=== PATIENT | male | born 1965 | race African-American/Black ===

== ENCOUNTER 2023-02-21 03:42 | Emergency (ER) | payer OTHER ==
[~2023-02-21] VITALS: Ht 172.7 cm; Wt 72.7 kg
[~2023-02-21 03:42] MED LIST: OTC PAIN RELIEVER
[2023-02-21] MEDS ORDERED: NITROGLYCERIN 2% OINT 1 GM UNIT DOSE PACKET TOP STA (03:54)
[2023-02-21] MEDS ORDERED: ASPIRIN 81 MG CHEWABLE TABLET PO ONE (04:00)
[2023-02-21 04:01] LABS: BASOPHILS % (AUTO) 1 % (0-10); EOSINOPHILS # (AUTO) 0.4 10^3/uL (0.0-0.3); EOSINOPHILS % (AUTO) 7 % (0-10); HEMATOCRIT 40 % (40-54); HEMOGLOBIN 13.3 g/dL (13.3-17.7); LYMPHOCYTES # (AUTO) 2.8 10^3/uL (1.0-4.0); LYMPHOCYTES % (AUTO) 46 % (12-44); MEAN CORPUSCULAR HEMOGLOBIN 30 pg (25-34); MEAN CORPUSCULAR HGB CONC 33 g/dL (32-36); MEAN CORPUSCULAR VOLUME 91 fL (80-99); MEAN PLATELET VOLUME 10.4 fL (9.0-12.2); MONOCYTES # (AUTO) 0.7 10^3/uL (0.0-1.0); MONOCYTES % (AUTO) 11 % (0-12); NEUTROPHILS # (AUTO) 2.1 10^3/uL (1.8-7.8); NEUTROPHILS % (AUTO) 34 % (42-75); PLATELET COUNT 352 10^3/uL (130-400); WHITE BLOOD COUNT 6.1 10^3/uL (4.3-11.0)
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
[2023-02-21 04:17] LABS: ALBUMIN 4.2 GM/DL (3.2-4.5); CHLORIDE 107 MMOL/L (98-107); SODIUM 139 MMOL/L (135-145)
[2023-02-21 04:18] LABS: AMYLASE 81 U/L (25-125); CALCIUM 9.4 MG/DL (8.5-10.1)
[2023-02-21 04:19] LABS: GLUCOSE 100 MG/DL (70-105); INR 0.9 (0.8-1.4); PROTHROMBIN TIME PATIENT 12.9 SEC (12.2-14.7); TOTAL PROTEIN 8.1 GM/DL (6.4-8.2)
[2023-02-21 04:20] LABS: CARBON DIOXIDE 23 MMOL/L (21-32)
[2023-02-21 04:21] LABS: BILIRUBIN,TOTAL 0.7 MG/DL (0.1-1.0)
[2023-02-21 04:22] LABS: FIBRIN DEGRADATION PRODUCTS 0.34 UG/ML (0.00-0.49)
[2023-02-21 04:23] LABS: ALKALINE PHOSPHATASE 78 U/L (40-136); CREATININE SERUM 1.46 MG/DL (0.60-1.30); GFR ESTIMATED 56
[2023-02-21 04:24] LABS: BUN/CREATININE RATIO 12
[2023-02-21 04:26] LABS: ALANINE AMINOTRANSFERASE 18 U/L (0-55); MAGNESIUM 2.1 MG/DL (1.6-2.4)
[2023-02-21 04:27] LABS: CREATINE KINASE 903 U/L (30-200); LIPASE 157 U/L (8-78)
[2023-02-21 04:34] LABS: CREATINE KINASE MB 5.5 NG/ML (<6.6)
[2023-02-21] MEDS ORDERED: hydrALAZINE INJECTION 20 MG/ML VIAL IV ONE (04:45)
[2023-02-21 05:20] VITALS: BP 140/95
--- NOTE | 2023-02-21 06:13 | Diagnostic Imaging Report ---
CHEST 1 VIEW, AP/PA ONLY Indication: Chest pain. Comparison: None available. Findings: No focal airspace disease in the visualized lungs. No pleural effusion or pneumothorax. Normal cardiomediastinal silhouette. Impression: 1. No acute cardiopulmonary process by portable radiography. Dictated by: Dictated on workstation # [id number]
== END 2023-02-21 05:20 | disposition home or self-care (01) ==
LOC: EDUNIT# 03:42 → ER 03:45
DX: M79.602 Pain in left arm (principal); I12.9 Hypertensive chronic kidney disease with stage 1 through stage 4 chronic kidney disease, or unspecified chronic kidney disease; N18.9 Chronic kidney disease, unspecified; F19.10 Other psychoactive substance abuse, uncomplicated; F17.210 Nicotine dependence, cigarettes, uncomplicated; Z79.899 Other long term (current) drug therapy; Z91.148 Patient's other noncompliance with medication regimen for other reason
CPT/HCPCS: 71045; 80053; 82150; 82550; 82553; 83690; 83735; 83874; 83880; 84484; 85025; 85379; 85610; 85730; 93005; 93041; 96374; 99284; G0480; 36415; 80320